=== PATIENT | male | born 2000 | race African-American/Black ===

== ENCOUNTER 2025-10-12 01:53 | Emergency (ER) | payer MEDICAID, OTHER ==
[~2025-10-12] VITALS: Ht 188 cm; Wt 80.9 kg
--- NOTE | 2025-10-12 02:45 | DVH ---
XY R HAND 3 VIEW XRAY INDICATION: SECOND DIGIT INJURY TECHNICAL DATA: Frontal, oblique and lateral views were obtained of the right hand. COMPARISON: None IMPRESSION: Oblique comminuted fracture of the 2nd mid phalanx distal diaphysis with intra- articular extension. No additional fractures identified.
[2025-10-12 03:08] VITALS: BP 129/86; PULSE 114; RESP 18; TEMP 98.2; O2SAT 96
--- NOTE | 2025-10-12 03:13 | ED.PDOC ---
Back pain HPI HPI Comments Pt presents to the ER with C/O right hand pain. Pt reports he was attempting to move a bed and his hand got caught underneath the bed and smashed his hand. Pt not to have swelling to right hand second digit. CSM intact, ROM limited. PMH- denies Chief Complaint: Upper Extremity Time Seen by MD: 01:57 Reviewed Notes: Nurses Notes, Medications, Allergies Allergies: Coded Allergies: NO KNOWN ALLERGIES (Unverified , 10/12/25) Home Meds Active Scripts Ibuprofen (Ibuprofen) 800 Mg Tab, 800 MG PO Q8HP PRN for 6 Days, #18 TAB Prov:ANAYELI OCASIO BUTCHER SCULLION 10/12/25 Mode of Arrival: Ambulatory All Other Systems: Reviewed and Negative (see hpi) Physical Exam General Appearance: No Apparent Distress, Normal HEENT: Pharynx Normal Neck: Full Range of Motion, Non-Tender Respiratory: Lungs Clear, No Respiratory Distress, Normal Breath Sounds Cardiovascular: No Edema, No Murmur, Normal Peripheral Pulses Breast Exam: Deferred Gastrointestinal: Non Tender, Soft Genitalia: Deferred Pelvic: Deferred Rectal: Deferred Extremities: Normal range of motion Musculoskeletal : Location: Right Extremity Location: Finger 2 (moderate edema distal aspect + CSM ) Apperance: Normal Neurologic: Alert, No Motor Deficits, Normal Affect, Normal Mood, No Sensory Deficits Cerebellar Function: Normal Reflexes: NOT DONE Skin: Dry, Normal Color, Warm Lymphatic: No Adenopathy Was a procedure done? Was a procedure done?: No Back Pain Differential Dx Differential Diagnosis: Fracture, Musculoskeletal Pain X-Ray, Labs, Meds, VS Vital Signs Date Time Temp Pulse Resp B/P (MAP) Pulse Ox O2 Delivery O2 Flow Rate FiO2 10/12/25 03:08 114 18 96 Room Air 10/12/25 03:08 98.2 114 18 129/86 (100) 96 98.2 10/12/25 01:57 97.4 120 18 132/79 99 97.4 Current Medications Medications (Trade) Dose Ordered Sig/Ortiz Route Start Time Stop Time Status Last Admin Ketorolac Tromethamine (Toradol Injection) 60 mg ONCE ONCE IM 10/12/25 03:15 10/12/25 03:16 DC 10/12/25 03:17 Acetaminophen/ Hydrocodone Bitart (Munith 5/325MG Tab) 1 tab ONCE ONCE PO 10/12/25 03:15 10/12/25 03:16 DC 10/12/25 03:17 X-Ray, Labs, Meds, VS Comment IMPRESSION: Oblique comminuted fracture of the 2nd mid phalanx distal diaphysis with intra- articular extension. No additional fractures identified. Note imaging Findings above. Patient placed in splint. Advised on rice. Advised to follow up with PCP for referral to ortho surgeon for consult and evaluation. Advised to keep the splint on until seen by ortho. Advised on ER return precautions, pt indicates understanding and agree with discharge plan of care. Images Reviewed?: Images reviewed and evaluated by me Time of 1ST Reevaluation: 01:57 Reevaluation 1ST: Unchanged Time of 2ND Reevaluation: 03:37 Reevaluation 2ND: Improved Patient Education/Counseling: Diagnosis, Treatment, Need For Follow Up Family Education/Counseling: No Family Present SEPSIS Sepsis Screen Date sepsis recognized/suspect: Oct 12, 2025 Time Sepsis recognized/suspect: 015 Recent Procedure: No On Antibiotic Therapy: No Respiratory Rate >20: No Heart Rate >90: Yes Temp<36 C (96.8 F) or >38.3 C: No SBP <90 or MAP <65 mmHG: No New Acute Mental Status Change: No Is the patient on CPAP, BIPAP,: No Physician Orders R Hand 3 View Xray (10/12/25 02:04) Vital Signs Date Time Temp Pulse Resp B/P (MAP) Pulse Ox O2 Delivery O2 Flow Rate FiO2 10/12/25 03:08 114 18 96 Room Air 10/12/25 03:08 98.2 114 18 129/86 (100) 96 98.2 10/12/25 01:57 97.4 120 18 132/79 99 97.4 Medications Medications Dose Ordered Sig/Ortiz Route Start Time Stop Time Status Last Admin Dose Admin Acetaminophen/ Hydrocodone Bitart 1 tab ONCE ONCE PO 10/12/25 03:15 10/12/25 03:16 DC 10/12/25 03:17 Ketorolac Tromethamine 60 mg ONCE ONCE IM 10/12/25 03:15 10/12/25 03:16 DC 10/12/25 03:17 Departure 1 Departure Time of Disposition: 03:37 Impression: Primary Impression: Fracture of distal phalanx of index finger Qualified Codes: S62.630A - Displaced fracture of distal phalanx of right index finger, initial encounter for closed fracture Disposition: HOME / SELF CARE / HOMELESS Condition: Stable e-Prescriptions Ibuprofen (Ibuprofen) 800 Mg Tab 800 MG PO Q8HP PRN for 6 Days, #18 TAB Prov: ANAYELI OCASIO 10/12/25 Discharged With: Self Critical Care Note Critical Care Time?: No Stability Stability form required: ANAYELI Thomas Oct 12, 2025 03:13
[2025-10-12] MEDS: HYDROcodone-ACET 5/325MG TAB PO ONE (03:17)
[2025-10-12] MEDS: KETOROLAC TROMETH 60MG/2ML VIAL IM ONE (03:17)
[2025-10-12] MEDS ORDERED: IBUP-1456 PO (03:39)
== END 2025-10-12 03:49 | disposition home or self-care (01) ==
LOC: ER 01:53
DX: S62.630A Displaced fracture of distal phalanx of right index finger, initial encounter for closed fracture (principal); Z79.899 Other long term (current) drug therapy; X58.XXXA Exposure to other specified factors, initial encounter; Y93.89 Activity, other specified; Y92.89 Other specified places as the place of occurrence of the external cause; Y99.8 Other external cause status
CPT/HCPCS: 29130; 73130; 96372; 99283; J1885